=== PATIENT | male | born 1965 | race Hispanic/Latino ===

== ENCOUNTER → 2018-06-15 | Outpatient (CLI) | payer OTHER | END | disposition home or self-care (01) | LOC: OIH 14:43 | PROVIDERS: ATTEND Internal Medicine Cardiovascular Disease | DX: Z13.6 Encounter for screening for cardiovascular disorders (principal) | CPT/HCPCS: 75571 ==

== ENCOUNTER 2019-03-16 13:03 | Emergency (ER) | payer OTHER ==
[2019-03-16 13:38] LABS: BASOPHILS % (AUTO) 0.6 % (0.0-5.0); EOSINOPHILS % (AUTO) 1.2 % (0.0-8.0); HEMATOCRIT 43.3 % (42-54); LYMPHOCYTES % (AUTO) 14.4 % (21.0-51.0); MEAN CORPUSCULAR HEMOGLOBIN 29.6 pg (27.0-33.0); MEAN CORPUSCULAR HGB CONC 34.1 g/dL (32.0-36.0); MEAN CORPUSCULAR VOLUME 86.6 fL (79-99); NEUTROPHILS % (AUTO) 78.8 % (40.0-77.0); PLATELET COUNT (AUTO) 159 K/uL (130-400); RED BLOOD CELL COUNT(AUTO) 4.99 MIL/uL (4.50-6.20); RED CELL DISTRIBUTION WIDTH 13.4 % (11.0-15.5); WHITE BLOOD COUNT (AUTO) 7.7 K/uL (4.8-10.8)
[2019-03-16 13:48] LABS: CREATININE 0.8 mg/dL (0.5-1.5); POTASSIUM 3.7 mmol/L (3.5-5.1)
[2019-03-16 13:53] LABS: ALBUMIN 3.5 g/dL (3.5-5.0); BILIRUBIN,TOTAL 0.6 mg/dL (0.2-1.0); TOTAL PROTEIN, SERUM 7.3 g/dL (6.0-8.3)
[2019-03-16] MEDS ORDERED: ONDANSETRON HCL 4 MG/2 ML VIAL ONE (13:54)
[2019-03-16] MEDS ORDERED: MORPHINE SULFATE 4 MG/1ML SYG ONE (13:54)
[2019-03-16] MEDS ORDERED: MECLIZINE HCL 25 MG TABLET ONE (13:54)
== END 2019-03-16 16:45 | disposition home or self-care (01) ==
LOC: EDH 13:03
DX: R51 Headache (principal); R42 Dizziness and giddiness; R53.1 Weakness; R53.83 Other fatigue; E11.9 Type 2 diabetes mellitus without complications; E78.00 Pure hypercholesterolemia, unspecified; Z88.6 Allergy status to analgesic agent
CPT/HCPCS: 36415; 70450; 80053; 83690; 84484; 85025; 93005; 96374; 96375; 99285; J2270; J2405

== ENCOUNTER → 2019-08-15 | Outpatient (CLI) | payer OTHER | END | disposition home or self-care (01) | LOC: RAH 13:59 | PROVIDERS: ATTEND Internal Medicine Cardiovascular Disease | DX: Z13.6 Encounter for screening for cardiovascular disorders (principal) | CPT/HCPCS: 75571 ==

== ENCOUNTER → 2020-05-12 | Outpatient (CLI) | payer OTHER | END | disposition home or self-care (01) | LOC: SHCH 10:00 | PROVIDERS: ATTEND Internal Medicine Cardiovascular Disease | DX: I25.119 Atherosclerotic heart disease of native coronary artery with unspecified angina pectoris (principal); R07.9 Chest pain, unspecified | CPT/HCPCS: 93306; 93356 ==

== ENCOUNTER → 2020-05-16 | Outpatient (CLI) | payer OTHER ==
[~2020-05-16] VITALS: Ht 167.6 cm; Wt 107.5 kg
[~2020-05-16] MED LIST: REGADENOSON 0.4 MG/5 ML PF SYG IVP SCH
== END | disposition home or self-care (01) ==
LOC: SHCH 08:21
PROVIDERS: ATTEND Internal Medicine Cardiovascular Disease
DX: I25.10 Atherosclerotic heart disease of native coronary artery without angina pectoris (principal); R07.9 Chest pain, unspecified
CPT/HCPCS: 78452; 93017; 96374; A9500 ×2; J2785

== ENCOUNTER 2020-06-03 06:13 | Day surgery (SDC) | payer OTHER ==
[2020-06-02 15:47] LABS: BASOPHILS % (AUTO) 1.1 % (0.0-5.0); EOSINOPHILS % (AUTO) 3.4 % (0.0-8.0); HEMATOCRIT 44.3 % (42-54); LYMPHOCYTES % (AUTO) 24.8 % (21.0-51.0); MEAN CORPUSCULAR HEMOGLOBIN 29.7 pg (27.0-33.0); MEAN CORPUSCULAR HGB CONC 33.6 g/dL (32.0-36.0); MEAN CORPUSCULAR VOLUME 88.4 fL (79-99); MONOCYTES % (AUTO) 9.6 % (3.0-13.0); NEUTROPHILS % (AUTO) 60.3 % (40.0-77.0); PLATELET COUNT (AUTO) 217 K/uL (130-400); RED BLOOD CELL COUNT(AUTO) 5.01 MIL/uL (4.50-6.20); RED CELL DISTRIBUTION WIDTH 12.3 % (11.0-15.5); WHITE BLOOD COUNT (AUTO) 7.6 K/uL (4.8-10.8)
[2020-06-02 16:03] LABS: POTASSIUM 3.9 mmol/L (3.5-5.1)
[2020-06-02 16:05] LABS: INR 1.1 (0.85-1.15); PROTHROMBIN TIME 11.9 SEC (9.6-11.6)
[2020-06-02 16:06] LABS: PARTIAL THROMBOPLASTIN TIME 26.2 SEC (26.3-35.5)
[2020-06-03] VITALS (20 sets, daily range): BP systolic 107–138; BP diastolic 56–88
[~2020-06-03] VITALS: Ht 177.8 cm; Wt 106.2 kg
[~2020-06-03 06:13] MED LIST changes: +CLOP75TA14 PO; +EZET10TA13 PO; +FINA5TAB2 PO; +LOSA25TA41 PO; +METF-445 PO; -REGADENOSON 0.4 MG/5 ML PF SYG IVP SCH; +SODIUM CHLORIDE 0.9% 1000ML 1,000 ML IV ONE; +TAMS-1 PO
[2020-06-03] MEDS ORDERED: IOHEXOL 350 MG/ML 100ML INFUS..BTL IV ONE (07:07)
[2020-06-03] MEDS ORDERED: IOHEXOL-350 75 ML VIAL IV ONE (07:07)
[2020-06-03] MEDS ORDERED: HEPARIN SODIUM 1000UNIT/ML 10ML VIAL ONE (07:07)
[2020-06-03] MEDS ORDERED: IOHEXOL-350 50ML VIAL IV ONE ×2 (07:07→07:41)
[2020-06-03] MEDS ORDERED: LIDOCAINE HCL 2% 20ML ONE (07:08)
[2020-06-03] MEDS ORDERED: METHYLPREDNISOLONE SOD SUCC 125MG/2ML VIAL ONE (07:27)
[2020-06-03] MEDS ORDERED: FAMOTIDINE/PF 20 MG/2 ML VIAL IV ONE (07:27)
[2020-06-03] MEDS ORDERED: SODIUM CHLORIDE 0.9% 1000ML 1,000 ML IV SCH ×2 (08:00→08:30)
[2020-06-03] MEDS ORDERED: ATROPINE SULFATE 0.1 MG/ML 10 ML SYG IVP ONE (08:30)
[2020-06-03] MEDS ORDERED: GLUCAGON 1MG KIT 1 MG ML IM PRN (08:30)
[2020-06-03] MEDS ORDERED: DEXTROSE 50%-WATER 50 ML DISP.SYRIN IV PRN (08:30)
[2020-06-03] MEDS ORDERED: INSULIN HUMULIN R 100 UNIT/ML 3ML SQ SCH (11:30)
== END 2020-06-03 16:43 | disposition home or self-care (01) ==
LOC: DAH 06:13
PROVIDERS: ATTEND Internal Medicine Cardiovascular Disease
DX: I25.119 Atherosclerotic heart disease of native coronary artery with unspecified angina pectoris (principal); I10 Essential (primary) hypertension; E11.9 Type 2 diabetes mellitus without complications; G47.30 Sleep apnea, unspecified; E66.3 Overweight; Z90.49 Acquired absence of other specified parts of digestive tract; Z79.01 Long term (current) use of anticoagulants; Z79.84 Long term (current) use of oral hypoglycemic drugs; Z79.899 Other long term (current) drug therapy; Z82.3 Family history of stroke; Z82.49 Family history of ischemic heart disease and other diseases of the circulatory system; Z83.3 Family history of diabetes mellitus; Z80.9 Family history of malignant neoplasm, unspecified; Z72.89 Other problems related to lifestyle; Z88.8 Allergy status to other drugs, medicaments and biological substances; Z68.38 Body mass index [BMI] 38.0-38.9, adult
CPT/HCPCS: 36415; 71045; 80048; 82948; 85025; 85610; 85730; 93005; 93458; A4215; A4216; A4221; A4222; A4223 ×3; A4606; A4663; C1887; C1894; J1644 ×2; J2930; J3490 ×2; J7030; Q9965; Q9967 ×3; J0461

== ENCOUNTER 2020-09-26 06:39 | Day surgery (SDC) | payer OTHER ==
[2020-09-23 14:41] LABS: BASOPHILS % (AUTO) 0.7 % (0.0-5.0); EOSINOPHILS % (AUTO) 6.4 % (0.0-8.0); HEMATOCRIT 41.2 % (42-54); LYMPHOCYTES % (AUTO) 28.8 % (21.0-51.0); MEAN CORPUSCULAR HEMOGLOBIN 29.3 pg (27.0-33.0); MEAN CORPUSCULAR HGB CONC 32.5 g/dL (32.0-36.0); MEAN CORPUSCULAR VOLUME 90.2 fL (79-99); MONOCYTES % (AUTO) 11.3 % (3.0-13.0); NEUTROPHILS % (AUTO) 52.5 % (40.0-77.0); PLATELET COUNT (AUTO) 173 K/uL (130-400); RED BLOOD CELL COUNT(AUTO) 4.57 MIL/uL (4.50-6.20); RED CELL DISTRIBUTION WIDTH 12.7 % (11.0-15.5); WHITE BLOOD COUNT (AUTO) 6.9 K/uL (4.8-10.8)
[2020-09-23 14:48] LABS: CREATININE 0.9 mg/dL (0.5-1.5); POTASSIUM 3.9 mmol/L (3.5-5.1)
[2020-09-25 13:40] VITALS: BP 140/68
[2020-09-26] VITALS (18 sets, daily range): BP systolic 92–127; BP diastolic 48–75
[~2020-09-26] VITALS: Ht 175.3 cm; Wt 105.4 kg
[~2020-09-26 06:39] MED LIST changes: +INSU3INS3 SQ; -SODIUM CHLORIDE 0.9% 1000ML 1,000 ML IV ONE
[2020-09-26] MEDS ORDERED: SODIUM CHLORIDE 0.9% 1000ML 1,000 ML IV ONE (07:46)
[2020-09-26] MEDS: CEFTRIAXONE SODIUM 1 GM ONE ×2 (08:37→10:10)
[2020-09-26] MEDS ORDERED: DEXAMETHASONE SOD PHOSPHATE 10MG/ML 1ML VIAL ONE (09:56)
[2020-09-26] MEDS ORDERED: LIDOCAINE PF 100MG/5ML (2%) SYRINGE 5ML ONE (09:56)
[2020-09-26] MEDS ORDERED: SUCCINYLCHOLINE 200MG/10ML SYR ONE (09:56)
[2020-09-26] MEDS ORDERED: NEOSTIGMINE 5MG/5ML SYR IV ONE (09:57)
[2020-09-26] MEDS ORDERED: GLYCOPYRROLATE 1 MG/5 ML SYRINGE ONE (09:57)
[2020-09-26] MEDS ORDERED: ROCURONIUM 10MG/1ML SYR 10 MG/ML ML ONE (09:57)
[2020-09-26] MEDS ORDERED: ONDANSETRON HCL 4 MG/2 ML VIAL ONE (09:57)
[2020-09-26] MEDS ORDERED: PROPOFOL 10 MG/ML 20ML VIAL IV ONE (09:57)
[2020-09-26] MEDS ORDERED: MIDAZOLAM HCL 1 MG/ML 2ML VIAL ONE (09:57)
[2020-09-26] MEDS ORDERED: FENTANYL CITRATE PF 50 MCG/1 ML 2ML VIAL ONE (09:58)
[2020-09-26] MEDS ORDERED: OPIUM/BELLADONNA ALKALOIDS 1 EACH SUPP.RECT RC ONE (10:39)
[2020-09-26] MEDS ORDERED: MEPERIDINE-PF 25 MG/ML SYG ONE (11:30)
[2020-09-26] MEDS ORDERED: RACEPINEPHRINE HCL 2.25% 0.5 ML NEB SOLN ONE (11:31)
[2020-09-26] MEDS ORDERED: PHENAZOPYRIDINE HCL 200 MG TABLET ONE (12:38)
[2020-09-26] MEDS ORDERED: PHENAZOPYRIDINE HCL 200 MG TABLET PO SCH (12:45)
== END 2020-09-26 13:35 | disposition home or self-care (01) ==
LOC: DAH 06:39
PROVIDERS: ATTEND Urology
DX: N40.1 Benign prostatic hyperplasia with lower urinary tract symptoms (principal); Z20.822 Contact with and (suspected) exposure to COVID-19; R39.14 Feeling of incomplete bladder emptying; R35.1 Nocturia; N35.819 Other urethral stricture, male, unspecified site; E66.01 Morbid (severe) obesity due to excess calories; E11.9 Type 2 diabetes mellitus without complications; G47.30 Sleep apnea, unspecified; Z98.890 Other specified postprocedural states; Z90.49 Acquired absence of other specified parts of digestive tract; Z86.73 Personal history of transient ischemic attack (TIA), and cerebral infarction without residual deficits; Z88.8 Allergy status to other drugs, medicaments and biological substances
CPT/HCPCS: 36415; 52648; 80048; 82948 ×2; 85025; 87635; 93005; 94640; A4215; A4221; A4222; A4223; A4340; A4358; A4600; A6260; C9803; J0330; J0696; J1100; J2001; J2175; J2250; J2405; J2704; J2710; J3010; J3490; J7030; J7120

== ENCOUNTER → 2021-07-14 | Outpatient (CLI) | payer OTHER | END | disposition home or self-care (01) | LOC: OIH 11:18 | PROVIDERS: ATTEND Internal Medicine Cardiovascular Disease | DX: Z13.6 Encounter for screening for cardiovascular disorders (principal); I25.10 Atherosclerotic heart disease of native coronary artery without angina pectoris; I51.5 Myocardial degeneration | CPT/HCPCS: 75571 ==

== ENCOUNTER 2021-11-10 20:14 | Emergency (ER) | payer OTHER ==
[~2021-11-10] VITALS: Ht 175.3 cm; Wt 104.3 kg
[2021-11-10] MEDS ORDERED: MORPHINE 2 MG SYG IM ONE (21:30)
[2021-11-10] MEDS ORDERED: LIDOCAINE HCL 1% 10 ML VIAL ONE (22:34)
[2021-11-10] MEDS ORDERED: AUGM250L PO (23:18)
[2021-11-10] MEDS ORDERED: CEFTRIAXONE 1G VIAL IM ONE (23:30)
[2021-11-10 23:34] VITALS: BP 136/78
== END 2021-11-10 23:48 | disposition home or self-care (01) ==
LOC: EDH 20:14
DX: S61.412A Laceration without foreign body of left hand, initial encounter (principal); S61.217A Laceration without foreign body of left little finger without damage to nail, initial encounter; E11.9 Type 2 diabetes mellitus without complications; E78.00 Pure hypercholesterolemia, unspecified; I10 Essential (primary) hypertension; E66.9 Obesity, unspecified; Z88.6 Allergy status to analgesic agent; Z79.4 Long term (current) use of insulin; Z79.899 Other long term (current) drug therapy; Z90.49 Acquired absence of other specified parts of digestive tract; Z68.34 Body mass index [BMI] 34.0-34.9, adult; W54.0XXA Bitten by dog, initial encounter; Y93.89 Activity, other specified; Y92.89 Other specified places as the place of occurrence of the external cause; Y99.8 Other external cause status
CPT/HCPCS: 99284; 73120; 12002; 96372 ×2; J0696; J3490

== ENCOUNTER 2021-11-16 20:44 | Emergency (ER) | payer OTHER ==
[~2021-11-16] VITALS: Ht 175.3 cm; Wt 103.9 kg
[~2021-11-16 20:44] MED LIST changes: +AUGM250L PO
[2021-11-16] MEDS ORDERED: KETOROLAC 15MG/ML VIAL (15MG/ML) IV ONE (23:00)
[2021-11-16 23:13] LABS: BASOPHILS % (AUTO) 0.8 % (0.0-5.0); EOSINOPHILS % (AUTO) 5.2 % (0.0-8.0); MEAN CORPUSCULAR HEMOGLOBIN 29.4 pg (27.0-33.0); MEAN CORPUSCULAR HGB CONC 33.6 g/dL (32.0-36.0); MEAN CORPUSCULAR VOLUME 87.3 fL (79-99); MONOCYTES % (AUTO) 8.5 % (3.0-13.0); NEUTROPHILS % (AUTO) 53.8 % (40.0-77.0); PLATELET COUNT (AUTO) 187 K/uL (130-400); RED BLOOD CELL COUNT(AUTO) 5.04 MIL/uL (4.50-6.20); RED CELL DISTRIBUTION WIDTH 12.4 % (11.0-15.5); WHITE BLOOD COUNT (AUTO) 8.9 K/uL (4.8-10.8)
[2021-11-16 23:24] LABS: CREATININE 0.8 mg/dL (0.5-1.5); POTASSIUM 4.1 mmol/L (3.5-5.1)
[2021-11-16 23:29] LABS: ALBUMIN 3.5 g/dL (3.5-5.0); CRP QUANTITATIVE 7.5 mg/L (0.00-9.0); TOTAL PROTEIN, SERUM 7.8 g/dL (6.0-8.3)
[2021-11-17 00:30] VITALS: BP 130/62
[2021-11-17] MEDS ORDERED: ZOSYN 3.375GM +NS 50ML IV SCH (00:30)
[2021-11-17] MEDS ORDERED: DOXY-336 PO (01:15)
[2021-11-17] MEDS ORDERED: CEFD300C3 PO (01:15)
[2021-11-17] MEDS ORDERED: ACET-2079 PO (01:17)
== END 2021-11-17 01:34 | disposition home or self-care (01) ==
LOC: EDH 20:44
DX: S61.452A Open bite of left hand, initial encounter (principal); L08.9 Local infection of the skin and subcutaneous tissue, unspecified; E11.9 Type 2 diabetes mellitus without complications; E78.00 Pure hypercholesterolemia, unspecified; I10 Essential (primary) hypertension; E66.9 Obesity, unspecified; Z88.6 Allergy status to analgesic agent; Z79.1 Long term (current) use of non-steroidal anti-inflammatories (NSAID); Z79.4 Long term (current) use of insulin; Z79.899 Other long term (current) drug therapy; Z90.49 Acquired absence of other specified parts of digestive tract; Z68.33 Body mass index [BMI] 33.0-33.9, adult; W54.0XXA Bitten by dog, initial encounter; Y93.89 Activity, other specified; Y92.89 Other specified places as the place of occurrence of the external cause; Y99.8 Other external cause status
CPT/HCPCS: 99284; 96375; 80053; 85025; 87040 ×2; 83605; 86140; 36415; 96365; J1885; J2543

== ENCOUNTER → 2023-08-13 | Outpatient (CLI) | payer BC ==
[~2023-08-13] MED LIST changes: +ACET-2079 PO; +CEFD300C3 PO; +CLOP-31 PO; -CLOP75TA14 PO; +DOXY-469 PO; -EZET10TA13 PO; +EZET10TA81 PO; +FINA-37 PO; -FINA5TAB2 PO
== END | disposition home or self-care (01) ==
LOC: SHCH 13:32
PROVIDERS: ATTEND Internal Medicine Cardiovascular Disease
DX: I35.0 Nonrheumatic aortic (valve) stenosis (principal); R06.00 Dyspnea, unspecified
CPT/HCPCS: 93306

== ENCOUNTER 2024-05-15 17:13 | Emergency (ER) | payer BC ==
[~2024-05-15] VITALS: Ht 175.3 cm; Wt 99.8 kg
[~2024-05-15 17:13] MED LIST changes: +AMOX250S77 PO; -AUGM250L PO; -DOXY-469 PO; +DOXY100C61 PO
--- NOTE | 2024-05-15 18:16 | ERN ---
ED Note History of Present Illness Stated Complaint: URINE RETENTION Chief Complaint: Urinary Retention Time Seen by MD: 17:16 Time Seen by Midlevel: 17:16 Dictation: The patient is a 58-year-old male with a history of diabetes, hypertension, BPH, cholecystectomy who presents to the emergency department with unable to urinate onset this morning. Patient reports he is only able to urinary drops. Reports suprapubic abdominal pain and bilateral flank pain. Denies any fevers but reports chills. Denies any hematuria. Allergies: Coded Allergies: MEAGAN Inhibitors (Unverified Allergy, Unknown, 05/15/20) Iodinated Contrast Media (Unverified Allergy, Unknown, 09/25/20) aspirin (Verified Allergy, Unknown, UNKNOWN, 07/07/13) Home Meds Active Scripts Levofloxacin (Levaquin 750Mg Tabs) 750 Mg Tablet, 750 MG PO DAILY for 5 Days, #5 TAB 0 Refills Prov:AMEYA COLE SALES ACCOUNT COORDINATOR 05/15/24 Acetaminophen with Codeine (Acetaminophen-Cod #3 Tablet) 1 Each Tablet, 1 TAB PO Q6H PRN for PAIN LEVEL 7 TO 10, #15 TAB Prov:GAGAN STRICKLAND MD 11/17/21 Doxycycline Monohydrate (Doxycycline Monohydrate) 100 Mg Capsule, 1 CAP PO BID for 10 Days, #20 CAP 0 Refills Prov:GAGAN STRICKLAND MD 11/17/21 Cefdinir (Cefdinir) 300 Mg Capsule, 300 MG PO BID for 10 Days, #20 CAP Prov:GAGAN STRICKLAND MD 11/17/21 Amox Tr/Potassium Clavulanate (Augmentin 250 mg/5 ml Susp) 250 Mg/5 Ml Susp, 875 MG PO BID for 10 Days, #20 ML Prov:ALBERT FRANZ Jr. SALES ACCOUNT COORDINATOR 11/10/21 Reported Medications Insulin Glargine,Hum.rec.anlog (Lantus Solostar) 100 Unit/1 Ml Insuln.pen, 18 UNIT SQ DAILY, SYRINGE 09/25/20 Metformin HCl (Metformin HCl) 850 Mg Tablet, 850 MG PO BIDAC, TAB 06/02/20 Losartan Potassium (Losartan Potassium) 25 Mg Tablet, 25 MG PO DAILY, TAB 06/02/20 Tamsulosin HCl (Flomax) 0.4 Mg Cap.er.24h, 0.4 MG PO HS, CAPSULE. 06/02/20 Clopidogrel Bisulfate (Plavix) 75 Mg Tablet, 75 MG PO DAILY, TAB RESUME ON 09/29/20 06/02/20 Finasteride (Proscar) 5 Mg Tablet, 5 MG PO DAILY, TAB 06/02/20 Ezetimibe (Zetia) 10 Mg Tablet, 10 MG PO DAILY, TAB 06/02/20 Past Medical History Past Medical History: Diabetes-Type II, High Cholesterol, Hypertension, Prostatitis Additional Past Medical Hx: Obesity Surgical History: Cholecystectomy, Other Surgical History Other: CIRCUMCISION; GREEN LIGHT THERAPY PROSTATE Family History: DM Social History: ETOH, Lives with family RN Note Reviewed/Agreed w/PFSH: Yes Review of System Dictation Constitutional: Negative for fever,chills, and weight loss Eyes: Negative for injury, pain,redness, and discharge ENT: Negative for injury,pain or swelling Cardiovascular: Negative for chest pain, palpitations, and edema Respiratory: Negative for shortness of breath, cough, and wheezing, Abdomen/GI: Negative for , nausea, vomiting, diarrhea, and constipation positive for abdominal pain Back: Negative for injury and pain : Negative for injury, bleeding and discharge positive for bilateral flank pain, urinary retention MS/Extremity: Negative for injury and deformity Skin: Negative for rash, and discoloration Neuro: Negative for headache, weakness, numbness, tingling, and seizure Psych: Negative for suicide ideation, homicidal ideation, and hallucinations Initial Vital Sign VS Vital Signs Date Time Temp Pulse Resp B/P (MAP) Pulse Ox O2 Delivery O2 Flow Rate FiO2 05/15/24 18:10 99.9 114 20 136/75 94 Room Air 0 05/15/24 22:38 21 Physical Exam Dictation Vital Signs reviewed General Appearance: Alert, oriented x 3, no acute distress, well developed, nourished. Head and Face: non-traumatic. Eyes: PERRL, pink conjunctivas, eyelid no trauma, anterior chamber with arcus senilis. Ears: Pinnas intact and no signs of trauma or erythema ear canals clear and no discharge TM no erythema Nose: No discharge, no bleeding. Oropharynx: Mouth normal, tongue pink. pharynx clear,no erythema, tonsils no exudates, no abscesses noted, mucous membrane moist Neck: Supple, non-tender, no thyromegaly, no masses, no JVD, no bruits Breast:Deferred Chest:No tenderness, no crepitus, no paradoxical movement, no retractions Lungs:Clear, well-ventilated, symmetric, no rales, no wheezing, no rhonchi, no stridor, good breath sounds bilaterally Heart: Regular rate, regular rhythm, no murmur, no gallops Vascular: no peripheral edema, Abdomen: Firm, positive bowel sounds,distended, no guarding, nontender, no rebound, no masses no hepatomegaly, no splenomegaly, no Bhakta's sign, no hernias. Rectal: Deferred Genital: Deferred Neurological: Normal speech, motor function intact, sensory function intact Musculoskeletal: Neck nontender, full range of motion, back nontender, full range of motion, Extremities: nontender, full range of motion Skin: Color pink, dry, no turgor, no rash, no lacerations, no abrasions, no contusions. Lymphatic: Deferred Results (Laboratory/Radiology) Laboratory/Radiology Laboratory Tests Test 05/15/24 18:32 05/15/24 18:38 Urine Color COLORLESS (YELLOW) Urine Appearance CLEAR (CLEAR) Urine pH 5.5 (5.0-8.0) Urine Specific [place] 1.004 (1.001-1.031) Urine Protein NEGATIVE mg/dL (NEGATIVE) Urine Glucose (UA) 300 mg/dL (NEGATIVE) H Urine Ketones NEGATIVE mg/dL (NEGATIVE) Urine Occult Blood +- (TRACE) (NEGATIVE) H Urine Nitrate NEGATIVE (NEGATIVE) Urine Bilirubin NEGATIVE mg/dL (NEGATIVE) Urine Urobilinogen 0.2 mg/dL (0.2-1.0) Urine Leukocyte Esterase 25 Romeo/uL (NEGATIVE) H Urine RBC None /HPF (0-1) Urine WBC 2-5 /HPF (0-1) H Urine Bacteria None /HPF (None Seen) Urine Opiates Screen NEGATIVE (NEGATIVE) Urine Barbiturates Screen NEGATIVE (NEGATIVE) Urine Phencyclidine Screen NEGATIVE (NEGATIVE) Urine Amphetamines Screen NEGATIVE (NEGATIVE) Urine Benzodiazepines Screen NEGATIVE (NEGATIVE) Urine Cocaine Screen NEGATIVE (NEGATIVE) Urine Marijuana (THC) Screen NEGATIVE (NEGATIVE) White Blood Count 16.3 K/uL (4.8-10.8) H Red Blood Count 5.05 MIL/uL (4.50-6.20) Hemoglobin 15.0 g/dL (14.0-18.0) Hematocrit 43.0 % (42-54) Mean Corpuscular Volume 85.1 fL (79-99) Mean Corpuscular Hemoglobin 29.7 pg (27.0-33.0) Mean Corpuscular Hemoglobin Concent 34.9 g/dL (32.0-36.0) Red Cell Distribution Width 12.2 % (11.0-15.5) Platelet Count 165 K/uL (130-400) Mean Platelet Volume 10.6 fL (7.5-10.5) H Immature Granulocyte % (Auto) 0.5 % (0-1) Neutrophils (%) (Auto) 83.8 % (40.0-77.0) H Lymphocytes (%) (Auto) 6.0 % (21.0-51.0) L Monocytes (%) (Auto) 9.4 % (3.0-13.0) Eosinophils (%) (Auto) 0.1 % (0.0-8.0) Basophils (%) (Auto) 0.2 % (0.0-5.0) Neutrophils # (Auto) 13.7 K/uL (1.8-7.7) H Lymphocytes # (Auto) 1.0 K/uL (1.0-4.8) Monocytes # (Auto) 1.5 K/uL (0.1-1.0) H Eosinophils # (Auto) 0.01 K/uL (0.00-0.70) Basophils # (Auto) 0.04 K/uL (0.00-0.20) Absolute Immature Granulocyte (auto 0.08 K/uL (0-1) Nucleated Red Blood Cells 0.0 % (0.0-0.19) White Cell Morphology Comment See comments Sodium Level 132 mmol/L (136-145) L Potassium Level 3.6 mmol/L (3.5-5.1) Chloride Level 96 mmol/L (101-111) L Carbon Dioxide Level 30 mmol/L (21-32) Blood Urea Nitrogen 12 mg/dL (7-18) Creatinine 1.1 mg/dL (0.5-1.3) Glomerular Filtration Rate Calc 78 mL/min (>90) Random Glucose 243 mg/dL (70-105) H Total Calcium 9.1 mg/dL (8.5-10.1) Labs Reviewed?: Yes ED Course ED Course Orders Procedure Category Date Status Time Cbc With Differential LAB 05/15/24 Complete 18:05 Urinalysis Profile LAB 05/15/24 Complete 18:05 Basic Metabolic Panel LAB 05/15/24 Complete 18:05 *Nursing CPOE 05/15/24 Transmitted Communication: 18:05 Ct Abdomen/Pelvis W/O CT 05/15/24 Resulted Contrast 18:05 Drug Screen Urine LAB 05/15/24 Complete 19:22 Nurse Driven Mendez PIA 05/15/24 In Process Removal Pro 19:45 0.9%Nacl 1000ml (Ns PHA 05/15/24 Complete 1000ml) 20:00 Acetaminophen 500mg PHA 05/15/24 Complete Tab (Tylenol 500mg T 20:00 Levofloxacin 750mg PHA 05/15/24 Complete Tab (Levaquin 750mg T 20:00 *Nursing CPOE 05/15/24 Transmitted Communication: 23:12 Current Medications Medications (Trade) Dose Ordered Sig/Christelle Route PRN Reason Start Time Stop Time Status Last Admin Dose Admin Acetaminophen (TYLenol 500MG TAB) 1,000 mg ONCE ONCE PO 05/15/24 20:00 05/15/24 20:01 DC 05/15/24 22:44 Levofloxacin (LEvaquIN 750MG TAB) 750 mg ONCE ONCE PO 05/15/24 20:00 05/15/24 20:01 DC 05/15/24 22:43 Sodium Chloride 1,000 ml @ 0 mls/hr ONCE ONCE IV 05/15/24 20:00 05/15/24 20:01 DC Vital Signs Date Time Temp Pulse Resp B/P (MAP) Pulse Ox O2 Delivery O2 Flow Rate FiO2 05/15/24 22:38 87 18 144/71 98 Room Air* 0 21 05/15/24 18:10 99.9 114 20 136/75 94 Room Air 0 Medical Decision Making [facility] The patient is a 58-year-old male with a history of diabetes, hypertension, BPH, cholecystectomy who presents to the emergency department with unable to urinate onset this morning. Patient reports he is only able to urinary drops. Reports suprapubic abdominal pain and bilateral flank pain. Denies any fevers but reports chills. Denies any hematuria. CBC showed leukocytosis, no anemia, chemistry showed mild hyperglycemia, hypochloremia, hyponatremia, no DKA patient given a L of fluids. Urinalysis with positive leukocyte esterase. Patient will be treated with the antibiotics. Mendez catheter only had minimal output. Patient instructed to follow up with urologist. Patient acute distress, nontoxic appearance. Differential diagnosis: Urinary retention, renal failure, kidney stone, UTI Need for hospitalization: Patient does not meet criteria for hospitalization. There are no social concerns with this patient. DX & DISP Disposition: Discharge Departure Impression: Primary Impression: UTI (urinary tract infection) Additional Impressions: Leukocytosis, Uncontrolled diabetes mellitus with hyperglycemia Condition: Stable Scripts Levofloxacin (Levaquin 750Mg Tabs) 750 Mg Tablet 750 MG PO DAILY for 5 Days, #5 TAB 0 Refills Prov: DOUGLASAMEYA SPICER 05/15/24 Additional Instructions: Please follow up with your urologist as soon as possible. Take medications as prescribed. If symptoms worsen please return to ER. FOLLOW-UP WITH PRIMARY CARE PROVIDER IN 1 TO 2 DAYS. TAKE MEDICATIONS DIRECTED HERE IN THE EMERGENCY ROOM. OKAY TO CONTINUE HOME MEDICATIONS UNLESS OTHERWISE DISCUSSED DURING YOUR VISIT IN THE EMERGENCY ROOM TODAY. RETURN TO YOUR NEAREST EMERGENCY ROOM IF SYMPTOMS WORSEN OR IF THERE IS NO IMPROVEMENT. CALL 911 IF YOU NEED IMMEDIATE ASSISTANCE. TAKE TYLENOL OR MOTRIN [id number] NEEDED AND IF NO CONTRAINDICATIONS ARE PRESENT. INCREASE ORAL HYDRATION. A WOUND CULTURE OR URINE CULTURE WAS ORDERED HERE IN THE EMERGENCY ROOM DEPARTMENT PLEASE FOLLOW-UP WITH PRIMARY CARE PROVIDER AND ADVISE THEM TO GET REPEAT PORTS FROM OUR FACILITY. IF YOU HAD ANY MEAGAN WRAP/SPLINTS THAT WERE APPLIED HERE, PLEASE DO NOT REMOVE THEM UNTIL YOU SEE YOUR PRIMARY CARE OR SPECIALTY. Referrals: ASIYA SALAZAR MD (PCP) Time of Disposition: 20:22 I have examined patient, & reviewed all documents, & agreed W/ the Diagnosis, and Plan ATTESTATION BY PHYSICIAN I PERFORMED THE SUBSTANTIVE PORTION OF THE VISIT. I HAVE REVIEWED AND PERSONALLY MADE AND APPROVED THE MANAGEMENT PLAN THAT IS DOCUMENTED IN THE NOTE BY MYSELF FOR THE A PP. I ACKNOWLEDGED FOR RESPONSIBILITY FOR THE PATIENT'S MANAGEMENT PLAN. AMEYA COLE May 15, 2024 18:16
--- NOTE | 2024-05-15 18:38 | HMCIMG ---
CT ABDOMEN/PELVIS W/O CONTRAST REASON: R/O KIDNEY STONES, retention, flank pain COMPARISON: None. FINDINGS: Lung bases are clear. There are no focal liver lesions. Liver does not appear enlarged.. Spleen and pancreas appear unremarkable. There has been a previous cholecystectomy. Both kidneys appear unremarkable. There is no evidence of mass, stone or hydronephrosis. Ureters and urinary bladder appear unremarkable as well. Bowel loops appear unremarkable. There is no CT evidence of acute appendicitis. There is no evidence of free fluid or intraperitoneal air. There are no focal fluid collections. Aorta and retroperitoneum appear normal as do pelvic soft tissue structures. The anterior abdominal wall is intact. Osseous structures appear unremarkable. IMPRESSION: 1. No acute finding in the abdomen or pelvis. 2. No evidence of renal or ureteral stone. CT was performed with one or more following dose reduction techniques: automated exposure control, adjustment of the mA and kv according to patient's size, or use of a iterative reconstruction technique.
[2024-05-15 18:47] LABS: BASOPHILS # (AUTO) 0.04 K/uL (0.00-0.20); BASOPHILS % (AUTO) 0.2 % (0.0-5.0); EOSINOPHILS # (AUTO) 0.01 K/uL (0.00-0.70); EOSINOPHILS % (AUTO) 0.1 % (0.0-8.0); IMMATURE GRANULOCYTE ABSOLUTE 0.08 K/uL (0-1); MEAN CORPUSCULAR HEMOGLOBIN 29.7 pg (27.0-33.0); MEAN CORPUSCULAR HGB CONC 34.9 g/dL (32.0-36.0); MEAN CORPUSCULAR VOLUME 85.1 fL (79-99); MONOCYTES # (AUTO) 1.5 K/uL (0.1-1.0); MONOCYTES % (AUTO) 9.4 % (3.0-13.0); NEUTROPHILS # (AUTO) 13.7 K/uL (1.8-7.7); NEUTROPHILS % (AUTO) 83.8 % (40.0-77.0); PLATELET COUNT (AUTO) 165 K/uL (130-400); RED BLOOD CELL COUNT(AUTO) 5.05 MIL/uL (4.50-6.20); RED CELL DISTRIBUTION WIDTH 12.2 % (11.0-15.5); WHITE BLOOD COUNT (AUTO) 16.3 K/uL (4.8-10.8)
[2024-05-15 18:50] LABS: APPEARANCE,URINE CLEAR (CLEAR); BILIRUBIN,URINE NEGATIVE (NEGATIVE); COLOR,URINE COLORLESS (YELLOW); GLUCOSE, URINE (UA) 300 mg/dL (NEGATIVE); KETONES,URINE NEGATIVE (NEGATIVE); LEUKOCYTE ESTERASE ,URINE 25 Leu/uL (NEGATIVE); NITRATE,URINE NEGATIVE (NEGATIVE); PH,URINE 5.5 (5.0-8.0); PROTEIN,URINE NEGATIVE (NEGATIVE); UROBILINOGEN,URINE 0.2 mg/dL (0.2-1.0)
[2024-05-15 18:56] LABS: CREATININE 1.1 mg/dL (0.5-1.3); POTASSIUM 3.6 mmol/L (3.5-5.1)
[2024-05-15 19:05] LABS: ADD UA MICROSCOPIC YES
[2024-05-15 19:36] LABS: AMPHET/METH SCREEN,URINE NEGATIVE (NEGATIVE); BARBITURATE SCREEN, URINE NEGATIVE (NEGATIVE); BENZODIAZEPINES SCREEN,URINE NEGATIVE (NEGATIVE); CANNABINOID SCREEN,URINE NEGATIVE (NEGATIVE); COCAINE SCREEN,URINE NEGATIVE (NEGATIVE); OPIATE SCREEN,URINE NEGATIVE (NEGATIVE); PHENCYCLIDINE SCREEN,URINE NEGATIVE (NEGATIVE)
[2024-05-15] MEDS ORDERED: 0.9%NACL 1000ML 1,000 ML IV ONE (20:00)
[2024-05-15] MEDS ORDERED: LEVO750T68 PO (20:23)
[2024-05-15] MEDS: levoFLOXacin 750 MG TABLET PO ONE (22:43)
[2024-05-15] MEDS: acetaMINOPHEN 500 MG TABLET PO ONE (22:44)
--- NOTE | 2024-05-16 | NUR ---
PT WAS INFORMED THAT HE IS BEING DISCHARGED. PT WAS ADVISED THAT ESTRADA IS TO BE REMOVED THERE IS NOT SUFFICIENT URINE PRODUCTION TO SUPPORT INADEQUATE BLADDER EMPTYING BEING AN ISSUE. PT STATES HE IS CONCERNED WITH HAVING ESTRADA REMOVED AND WANTS TO SPEAK TO PROVIDER. [facility] WAS ADVISED OF PT CONCERN AND WENT TO SPEAK TO PT AND SPOUSE.
--- NOTE | 2024-05-16 00:05 | NUR ---
BLADDER WAS DONE AND 3 READINGS WERE TAKEN WITH READINGS BEING 0 ML, 0ML, AND LESS THAN 10 ML. [facility] WAS INFORMED OF FINDINGS.
--- NOTE | 2024-05-16 00:15 | NUR ---
PTS 16 FR ESTRADA CATH WAS REMOVED, THERE WAS ONLY 50 ML OF URINE IN THE BAG.
[2024-05-16 01:01] VITALS: BP 135/68; PULSE 81; RESP 18; TEMP 98.2; O2SAT 95
== END 2024-05-16 01:02 | disposition home or self-care (01) ==
LOC: EDH 17:13
DX: N39.0 Urinary tract infection, site not specified (principal); E11.65 Type 2 diabetes mellitus with hyperglycemia; D72.829 Elevated white blood cell count, unspecified; E66.9 Obesity, unspecified; E78.00 Pure hypercholesterolemia, unspecified; I10 Essential (primary) hypertension; Z79.02 Long term (current) use of antithrombotics/antiplatelets; Z79.4 Long term (current) use of insulin; Z79.899 Other long term (current) drug therapy; Z88.6 Allergy status to analgesic agent; Z90.49 Acquired absence of other specified parts of digestive tract; Z91.041 Radiographic dye allergy status
CPT/HCPCS: 99284; 74176; 80048; 80305; 85025; 36415; 81001; J7030